=== PATIENT | female | born 1945 | race Caucasian/White ===

== ENCOUNTER → 2017-04-02 | Outpatient (CLI) | payer MEDICARE ==
[~2017-04-02] MED LIST: ALBU17AE23; BUDE6HFA; CATHETER FLUSH 10 ML SYR IV PRN; IOHEXOL 350 MG/ML 100 ML (OMNIPAQUE 350) VIAL IV ONE; MULT-608; NS 100 ML (IVPB) BAG IV ONE; OMEP-10; PRD10T
--- NOTE | 2017-04-02 08:34 | Diagnostic Imaging Report ---
PROCEDURE: CT neck soft tissue with contrast. TECHNIQUE: Multiple contiguous axial images were obtained through the neck after the administration of contrast. INDICATION: Persistent neck nodule. COMPARISON: None. FINDINGS: There is a 1.3 x 1.1 x 1.0 cm enhancing mass in the region of the fatty-replaced right parotid gland, directly adjacent the radiopaque marker indicating the area of interest. This mass abuts an otherwise normal-appearing lymph node. No other mass or fluid collections in the neck. No cervical lymphadenopathy. There is fatty replacement of the major salivary glands. The pharyngeal and laryngeal soft tissues are symmetric bilaterally with no focal enhancement or mass. The visualized paranasal sinuses and mastoids are clear. Mild atherosclerotic calcifications in the carotid bifurcations. The cervical carotid and vertebral arteries are patent on this nondedicated exam. Visualized intracranial contents and skull base are negative. Lung apices are clear. Moderate degenerative changes in the cervical spine. IMPRESSION: 1. Well-circumscribed enhancing mass measuring up to 1.3 cm in the region of the right parotid gland. This is directly adjacent the radiopaque marker indicating the area of interest. This mass should be readily amenable to biopsy. 2. Fatty replacement of the major salivary glands consistent with reported history of Sjogren's syndrome. Dictated by: Dictated on workstation # [id number]
== END ==
LOC: RAD 07:24
PROVIDERS: ATTEND Otolaryngology Otolaryngology/Facial Plastic Surgery
DX: R22.1 Localized swelling, mass and lump, neck (principal); M35.00 Sjogren syndrome, unspecified
CPT/HCPCS: 70491

== ENCOUNTER 2017-05-14 11:50 | Outpatient (CLI) | payer MEDICARE ==
[~2017-05-14] VITALS: Ht 162.6 cm; Wt 71.2 kg
[~2017-05-14 11:50] MED LIST changes: -BUDE6HFA; +BUDE6HFA IH; -CATHETER FLUSH 10 ML SYR IV PRN; -IOHEXOL 350 MG/ML 100 ML (OMNIPAQUE 350) VIAL IV ONE; -NS 100 ML (IVPB) BAG IV ONE
[2017-05-14 12:01] VITALS: BP 163/89
[2017-05-14] MEDS ORDERED: CLOP75TA69 PO (12:11)
[2017-05-14] MEDS ORDERED: LEVO100T7 PO (12:11)
[2017-05-14] MEDS ORDERED: SIMV20TA3 PO (12:11)
[2017-05-14] MEDS ORDERED: PRED5TAB PO (12:11)
[2017-05-14] MEDS ORDERED: LEVO25TA5 PO (12:11)
[2017-05-14] MEDS ORDERED: PRD10T PO (12:11)
[2017-05-14] MEDS ORDERED: SUCR1TAB36 PO (12:15)
[2017-05-14] MEDS ORDERED: RT-ALBUINH IH (12:25)
[2017-05-14 12:55] LABS: BASOPHILS % (AUTO) 0 % (0-10); EOSINOPHILS # (AUTO) 0.1 10^3/uL (0.0-0.3); EOSINOPHILS % (AUTO) 1 % (0-10); LYMPHOCYTES # (AUTO) 2.1 X 10^3 (1.0-4.0); LYMPHOCYTES % (AUTO) 23 % (12-44); MEAN CORPUSCULAR HEMOGLOBIN 32 PG (25-34); MEAN CORPUSCULAR HGB CONC 32 G/DL (32-36); MEAN CORPUSCULAR VOLUME 99 FL (80-99); MEAN PLATELET VOLUME 8.8 FL (7.4-10.4); MONOCYTES # (AUTO) 1.1 X 10^3 (0.0-1.0); MONOCYTES % (AUTO) 13 % (0-12); NEUTROPHILS # (AUTO) 5.5 X 10^3 (1.8-7.8); NEUTROPHILS % (AUTO) 63 % (42-75); PLATELET COUNT 305 10^3/uL (130-400); RED BLOOD COUNT 4.15 10^6/uL (4.35-5.85); RED CELL DISTRIBUTION WIDTH 13.8 % (10.0-14.5); WHITE BLOOD COUNT 8.9 10^3/uL (4.3-11.0)
[2017-05-14 13:10] LABS: ANION GAP 11 MMOL/L (5-14); BLOOD UREA NITROGEN 14 MG/DL (7-18); BUN/CREATININE RATIO 18; CALCIUM 9.1 MG/DL (8.5-10.1); CARBON DIOXIDE 27 MMOL/L (21-32); CHLORIDE 101 MMOL/L (98-107); CREATININE SERUM 0.79 MG/DL (0.60-1.30); GFR ESTIMATED > 60; GLUCOSE 100 MG/DL (70-105); POTASSIUM 4.1 MMOL/L (3.6-5.0); SODIUM 139 MMOL/L (135-145)
--- NOTE | 2017-05-14 15:35 | Diagnostic Imaging Report ---
INDICATION: Preop. FINDINGS: PA and lateral views show the lungs to be well-aerated. There are no infiltrates. No masses. The heart is not enlarged. No hilar adenopathy. No pulmonary edema. No pneumothorax or pleural effusion. IMPRESSION: Normal PA and lateral chest. Dictated by: Dictated on workstation # [id number]
== END 2017-05-14 13:00 | disposition home or self-care (01) ==
LOC: PREOP 11:50
PROVIDERS: ATTEND Otolaryngology Otolaryngology/Facial Plastic Surgery
DX: Z01.812 Encounter for preprocedural laboratory examination (principal); D11.0 Benign neoplasm of parotid gland
CPT/HCPCS: 36415; 71020; 80048; 85025; 87081; 93005

== ENCOUNTER 2017-05-21 06:17 | Day surgery (SDC) | payer MEDICARE ==
[~2017-05-21] VITALS: Ht 162.6 cm; Wt 71.2 kg
[~2017-05-21 06:17] MED LIST changes: +CLOP75TA69 PO; +LEVO100T7 PO; +LEVO25TA5 PO; +PRD10T PO; +PRED5TAB PO; +RT-ALBUINH IH; +SIMV20TA3 PO; +SUCR1TAB36 PO
[2017-05-21] MEDS ORDERED: HYDROCORTISONE 100 MG/2 ML (Solu-CORTEF) VIAL IV ONE (07:30)
[2017-05-21] MEDS ORDERED: FAMOTIDINE 20MG/2ML IV (PEPCID) IV ONE (07:30)
[2017-05-21] MEDS: LACTATED RINGERS 1,000 ML IV PRN ×2 (07:38→10:21)
[2017-05-21] MEDS ORDERED: ARTIFICIAL TEARS OINT (LACRI-LUBE) 3.5 GM TUBE ONE (07:50)
[2017-05-21] MEDS ORDERED: fentaNYL INJECTION 100 MCG/2 ML AMP ONE ×2 (07:57→09:37)
[2017-05-21] MEDS ORDERED: MUPIROCIN 2% OINT 22 GM (BACTROBAN) TUBE ONE (08:10)
[2017-05-21] MEDS ORDERED: LIDOCAINE/EPI 2% 1:100,00 (XYLOCAINE) 20 ML VIAL ONE (08:10)
[2017-05-21 08:24] VITALS: BP 178/76
[2017-05-21] MEDS ORDERED: BSS 15 ML ONE (08:28)
--- NOTE | 2017-05-21 08:30 | Progress Note-Pre Operative ---
Pre-Operative Progress Note H&P Reviewed The H&P was reviewed, patient examined and no changes noted. Date Seen by Provider: May 21, 2017 Time Seen by Provider: 07:45 Date H&P Reviewed: May 21, 2017 Time H&P Reviewed: 07:45 Pre-Operative Diagnosis: Rigth Parotid Mass ROSALIA CALLES MD May 21, 2017 8:30 am
[2017-05-21] MEDS ORDERED: ceFAZolin 1,000 MG (ANCEF) VIAL IV ONE (09:30)
[2017-05-21] MEDS ORDERED: proPOfol 200 MG/20 ML (DIPRIVAN) VIAL IV ONE (09:48)
[2017-05-21] MEDS ORDERED: SEVOFLURANE (ULTANE) 15 ML INHAL SOLN ONE ×10 (09:48→11:46)
[2017-05-21] MEDS ORDERED: SUCCINYLCHOLINE INJ 100 MG/5 ML SYR ONE (09:48)
--- NOTE | 2017-05-21 11:11 | Progress Note-Post Operative ---
Post-Operative Progess Note Surgeon (s)/Finishing Inspector (s) Surgeon ROSALIA CALLES MD Finishing Inspector n/a Pre-Operative Diagnosis Rigth Parotid Mass Post-Operative Diagnosis same Post-Op Procedure Note Date of Procedure: May 21, 2017 Name of Procedure Performed: Rigth Superficial PArotidectomy Description & Findings Description and Findings: n/a Anesthesia Type get Estimated Blood Loss minimal Packing none. Specimen(s) collected/removed right protid mass-pleomorphic adenoma ROSALIA CALLES MD May 21, 2017 11:11 am
[2017-05-21] MEDS ORDERED: HYDROcodone/APAP 5 MG/325 MG (LORTAB) TAB PO PRN (11:15)
[2017-05-21 12:00] VITALS: BP 134/70
[2017-05-21] MEDS ORDERED: ONDANSETRON 4 MG/2 ML (SDV) Z0FRAN IVP PRN (12:00)
[2017-05-21] MEDS ORDERED: fentaNYL INJECTION 100 MCG/2 ML AMP IVP PRN (12:00)
[2017-05-21] MEDS: D5 1/2 NS W/KCL 20 MEQ/L 1,000 ML IV SCH ×2 (12:49→16:24)
[2017-05-21] MEDS: ACETAMINOPHEN 325 MG TABLET/CAPLET (TYLENOL) PO PRN (12:58)
[2017-05-21] MEDS ORDERED: SUCRALFATE 1 GM (CARAFATE) TAB PO PRN (13:00)
[2017-05-21] MEDS ORDERED: PATIENT MAY USE OWN MEDS, ALL MC SCH (13:15)
[2017-05-21] MEDS ORDERED: RT-ALBUTEROL SULF 2.5 MG/3 ML PRE-MIX VIAL IH PRN (13:30)
[2017-05-21 16:08] VITALS: BP 138/66
--- NOTE | 2017-05-21 18:04 | Progress Note-Standard ---
Standard Progress Note Progress Notes/Assess & Plan Date Seen by Provider: May 21, 2017 Time Seen by Provider: 17:30 Progress/Assessment & Plan ENT-Enrico doing well post-op. 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
[2017-05-21 20:16] VITALS: BP 170/73
[2017-05-21] MEDS ORDERED: SIMvastatin 20 MG (ZOCOR) TAB PO SCH (21:00)
[2017-05-22] VITALS: BP 143/65
[2017-05-22] MEDS: ACETAMINOPHEN 325 MG TABLET/CAPLET (TYLENOL) PO PRN (00:10)
[2017-05-22 03:30] VITALS: BP 167/72
--- NOTE | 2017-05-22 06:21 | Progress Note-Standard ---
Standard Progress Note Progress Notes/Assess & Plan Date Seen by Provider: May 22, 2017 Time Seen by Provider: 06:00 Progress/Assessment & Plan ENT-Sanju doing well post-op. Minimal drainage from drain Flap intact and flat FAcial nerve-intact [place] diet and is ambulatory will observe dulce Will get her her nocturnal oxygen this evening at 2 liters/minute-she uses this at home plan on drain out in am and hten home ENT-Sanju continues to do well draine 10cc -d/c'ed incision flat-less bruising this am facial nerve normal will discharge after breakfast RTC-7-10 days for suture remvoal in [facility] in [facility] discharge prescritpins given patient has prescription for hydrocodone may resume her plavix on wednesday-resume all of other medications today ROSALIA CALLES MD May 22, 2017 6:21 am
[2017-05-22] MEDS ORDERED: LEVOTHYROXINE 100 MCG (LEVOTHROID) TAB PO SCH (06:30)
[2017-05-22] MEDS ORDERED: LEVOTHYROXINE 25 MCG (LEVOTHROID) TAB PO SCH (06:30)
[2017-05-22 08:00] VITALS: BP 122/73
[2017-05-22] MEDS ORDERED: BUDESONIDE IH SCH (09:00)
[2017-05-22] MEDS ORDERED: FORMOTEROL IH SCH (09:00)
[2017-05-22] MEDS ORDERED: predniSONE 10 MG TAB PO SCH (09:00)
[2017-05-22] MEDS ORDERED: predniSONE 5 MG TAB PO SCH (09:00)
== END 2017-05-22 10:20 | disposition home or self-care (01) ==
LOC: SDC 06:17 → 4TH 12:42 → SDC 05-22 10:20
PROVIDERS: ATTEND Otolaryngology Otolaryngology/Facial Plastic Surgery
DX: D11.0 Benign neoplasm of parotid gland; M35.00 Sjogren syndrome, unspecified; J45.909 Unspecified asthma, uncomplicated; Z79.899 Other long term (current) drug therapy; Z79.01 Long term (current) use of anticoagulants; K21.9 Gastro-esophageal reflux disease without esophagitis
CPT/HCPCS: 88307; 88331

== ENCOUNTER → 2019-01-19 | Outpatient (CLI) | payer MEDICARE ==
--- NOTE | 2019-01-19 10:11 | Diagnostic Imaging Report ---
INDICATION: Right knee pain. FINDINGS: Three views of the right knee show no fracture, dislocation or other acute abnormalities. IMPRESSION: Negative right knee. Dictated by: Dictated on workstation # [id number]
== END ==
LOC: RAD FS 09:37
PROVIDERS: ATTEND Nurse Practitioner
DX: M25.561 Pain in right knee (principal)
CPT/HCPCS: 73562

== ENCOUNTER 2020-09-09 08:55 | Emergency (ER) | payer MEDICARE ==
[~2020-09-09 08:55] MED LIST changes: +SIMV20TA26 PO; -SIMV20TA3 PO
[2020-09-09] MEDS ORDERED: LIDOCAINE 1% INJ 20 ML 20 ML VIAL INJ ONE (09:15)
--- NOTE | 2020-09-09 09:17 | ED Fall/Injury ---
General Chief Complaint: Upper Extremity Stated Complaint: FALL; LT ELBOW Source: patient Exam Limitations: no limitations History of Present Illness Date Seen by Provider: Sep 09, 2020 Time Seen by Provider: 09:01 Initial Comments The patient presents to the ER by private conveyance from home with chief complaint of pain in her left elbow after a fall approximately 1 hour prior to arrival. She bandaged up herself and put an Silverio wrap on it but she was afraid t hat with her use of prednisone related to Sjogren's disease the wound might become infected so she wanted it checked out. She has the ability to pronate and supinate her left forearm and a little bit of tenderness in her wrist but she says she mainly landed on her left elbow. She takes Tylenol, naproxen routinely. She takes one half a tablet of tramadol every other day for her knee pain. She has scheduled knee surgery with Dr. Caruso in the spring. She has a history of peripheral vascular disease and poor wound healing. She is not on any antibiotics. She denies the use of blood thinners, striking her head nor loss of consciousness. Rates her pain 5 out of 10. The patient reports a tetanus vaccine was given 1 to [address] Landa. Allergies and Home Medications Allergies Coded Allergies: atropine (Verified Allergy, Unknown, 05/14/17) diphenhydramine (Unverified Allergy, Unknown, 05/21/17) midazolam (Verified Allergy, Unknown, versed psychosis, 05/14/17) omeprazole (Verified Allergy, Unknown, severe diarrhea, 05/14/17) Home Medications Albuterol Sulfate 1 Puff Puff, 2 PUFF IH Q4H PRN for WHEEZING, (Reported) 1 PUFF = 90 MCG Budesonide/Formoterol Fumarate 10.2 Gm Hfa.aer.ad, 2 PUFF IH DAILY, (Reported) Levothyroxine Sodium 25 Mcg Tablet, 25 MCG PO DAILY, (Reported) take with 100mcg tab Levothyroxine Sodium 100 Mcg Tablet, 100 MCG PO DAILY, (Reported) take with 25mcg tab Prednisone 10 Mg Tab, 10 MG PO DAILY, (Reported) take with 5mg tab Prednisone 5 Mg Tablet, 5 MG PO DAILY, (Reported) take with 10mg tab Simvastatin 20 Mg Tablet, 20 MG PO HS, (Reported) Sucralfate 1 Gm Tablet, 1 GM PO QID PRN for HEARTBURN, (Reported) Patient Home Medication List Home Medication List Reviewed: Yes Review of Systems Review of Systems Constitutional: No chills, No diaphoresis Eyes: Denies Blindness, Denies Blurred Vision Ears, Nose, Mouth, Throat: denies ear pain, denies ear discharge Respiratory: No cough, No short of breath Cardiovascular: No chest pain, No palpitations Gastrointestinal: No abdominal pain, No nausea, No vomiting Musculoskeletal: see HPI, joint pain Skin: see HPI Past Yeulwvo-Kdemoi-Oxripk Hx Patient Social History Alcohol Use: Denies Use Number of Drinks Today: Alcohol Beverage of Choice: Wine Recreational Drug Use: No Smoking Status: Never a Smoker 2nd Hand Smoke Exposure: No Recent Foreign Travel: No Contact w/Someone Who Travel: No Recent Hopitalizations: No Physical Abuse: No Sexual Abuse: No Mistreated: No Fear: No Immunizations Up To Date Tetanus Booster (TDap): Unknown Date of Pneumonia Vaccine: May 14, 2016 Seasonal Allergies Seasonal Allergies: No Past Medical History Surgeries: Yes (Lap Chela, Neuroma from Back of Neck, Left TKR, Bilat Femoral Artery Endar) Joint Replacement, Thyroidectomy Respiratory: Yes (Has Asthma Symptoms due to Sjogrens, Reactive Airway Disease, Oxygen at HS) Cardiac: No Neurological: No Reproductive Disorders: No Sexually Transmitted Disease: No Gastrointestinal: Yes (Hx of Hep A, Hx of Lap Chela) Gastroesophageal Reflux Musculoskeletal: No Endocrine: Yes (Thyroidectomy) Loss of Vision: Denies Hearing Impairment: Denies Cancer: No Psychosocial: No Integumentary: No Blood Disorders: No Physical Exam Vital Signs Vital Signs - First Documented 09/09/20 09:04 Temp 37.1 Pulse 88 Resp 16 B/P (MAP) 144/82 (102) Pulse Ox 100 Capillary Refill : Height, Weight, BMI Height: 5'4.00" Weight: 157lbs. 0.0oz. [id number]; 27.0 BMI Method: General Appearance: WD/WN, mild distress HEENT: PERRL/EOMI, TMs normal, pharynx normal, other (Atraumatic head with no bah sign or raccoon eyes) Neck: non-tender, full range of motion, normal inspection Cardiovascular: normal peripheral pulses, regular rate, rhythm Respiratory: no respiratory distress, no accessory muscle use Peripheral Pulses: 2+ Radial Pulses (R), 2+ Radial Pulses (L) Extremities: other (Lacks about 20 degrees of extension in her left elbow due to pain. Pronation supination left elbow intact. Tenderness over proximal radius and ulna without obvious deformity) Neurologic/Psychiatric: no motor/sensory deficits, alert, normal mood/affect, oriented x 3 Skin: other (Minor abrasion on the left wrist palmar side and round skin tear abrasion over the left elbow.) [place] Coma Score Best Eye Response: (4) Open Spontaneously Best Verbal Response: (5) Oriented Best Motor Response: (6) Obeys Commands [place] Total: 15 Procedures/Interventions Wound Location: Upper Extremities Other Wound Location Lateral left elbow Wound Length (cm): 2.5 Wound's Depth, Shape: irregular, sub Q Wound Explored: no foreign body removed Irrigated w/ Saline (ccs): 100 Betadine Prep?: Yes (Chlorhexidine) Anesthesia: 1% Lidocaine Volume Anesthetic (ccs): 2 Wound Debrided: minimal Suture: Ethlion Suture Size: 4-0 Number of Sutures: 3 Layer Closure?: 1 Sterile Dressing Applied?: Yes Progress Under usual sterile conditions we flushed out the wound and explored it. There were no foreign debris. We could see the joint capsule appeared to be intact. No bone could be visualized. The wound was thoroughly flushed with sterile saline and chlorhexidine and then sterile saline. We then applied 3 simple in terrupted sutures to the irregular wound which closed the wound. It was not bleeding. A sterile, dry gauze dressing was applied. Patient tolerated procedure well peer Splinting and Joint Reduction : Location: Left elbow Pre-Proc Neuro Vasc Exam: normal Post-Proc Neuro Vasc Exam: normal, unchanged from pre-exam Progress Posterior arm splint was placed using 3 inch fiberglass and appropriate padding. Silverio bandage for mounting. Patient had good neurovascular status after placement of splint at a 90 degree angle and was placed in a sling. Patient tolerated the procedure well. Progress/Results/Core Measures Results/Orders My Orders Orders - NAKIA ROSS Lidocaine 1% Inj 20 Ml (Xylocaine 1% Inj (09/09/20 09:15) Elbow 3 View Left (09/09/20 09:09) Wrist 2 View Left (09/09/20 09:09) Medications Given in ED Current Medications Medications Dose Ordered Sig/Shraddha Route Start Time Stop Time Status Last Admin Dose Admin Lidocaine HCl 20 ml ONCE ONCE INJ 09/09/20 09:15 09/09/20 09:16 DC 09/09/20 09:53 20 ML Vital Signs/I&O 09/09/20 09:04 Temp 37.1 Pulse 88 Resp 16 B/P (MAP) 144/82 (102) Pulse Ox 100 Progress Progress Note : Time: 09:15 Progress Note Plan to obtain plain films of the left elbow and wrist related to her fall. We have discussed observation versus imaging of her head and prefers observation. We will clean her wound thoroughly with chlorhexidine and sterile saline flush it and then closed it with suture after the x-ray. She just wants an ice pack for pain for now. Because of the concern for open fracture we will put her on antibiotics. Diagnostic Imaging Diagonstic Imaging: Xray Plain Films/CT/US/NM/MRI: elbow (Left) Comments comminuted fracture of the olecranon process of the left ulna [facility] [place] NAME: [facility] REC#: [id number] PT STATUS: REG ER : 1945 PHYSICIAN: NAKIA ROSS MD ADMIT DATE: 09/09/20/ER FS Draft Date of Exam:09/09/20 ELBOW 3 VIEW LEFT EXAMINATION: Left elbow, 3 views INDICATION: Left elbow pain related to trauma after fall on ice. COMPARISON: None available. FINDINGS: There is a severely comminuted fracture of the olecranon process of the ulna, with the largest fracture fragment displaced anteriorly. The fracture does extend into the ulnohumeral joint. No other fracture is identified. There is mild elevation of the anterior fat pad, likely representing small effusion. There is associated soft tissue swelling in the posterior elbow. IMPRESSION: Comminuted, displaced intra-articular fracture of the olecranon. Dictated on workstation # [id number] Dict: 09/09/20930 Trans: 09/09/2040 [facility] [phone] Interpreted by: ROSALIA COLLINS DO Electronically signed by: Reviewed: Reviewed by Me Diagonstic Imaging: Xray Plain Films/CT/US/NM/MRI: forearm (Left wrist) Comments No acute appearing fracture. Hardware appears intact. NAME: [facility] REC#: [id number] PT STATUS: REG ER : 1945 PHYSICIAN: NAKIA ROSS MD ADMIT DATE: 09/09/20/ER FS Signed Date of Exam:09/09/20 WRIST 2 VIEW LEFT HISTORY: Fall on ice this morning, injury to the left wrist. TECHNIQUE: Two views of the left wrist. COMPARISON: None. FINDINGS: There is internal fixation of the distal left radius with a volar plate and multiple screws. No hardware complication is seen. There is mild deformity of the distal radius from remote trauma. There are moderate degenerative changes in the carpus. There is approximately 4 mm of positive ulnar variance. No fracture is seen. The alignment appears normal. IMPRESSION: 1. Internal fixation of the distal left radius with no hardware complication or acute osseous abnormality seen. 2. Degenerative changes in the left carpus. Dictated by: Dictated on workstation # [id number] Dict: 09/09/2033 Trans: 09/09/20 0948 [id number] Interpreted by: CHRISSY BLOCK MD Electronically signed by: CHRISSY BLOCK MD 09/09/2048 Reviewed: Reviewed by Me Departure Impression Primary Impression: Fall Qualified Codes: W19.XXXA - Unspecified fall, initial encounter Additional Impressions: Abrasion Skin tear of left elbow without complication Qualified Codes: S51.012A - Laceration without foreign body of left elbow, initial encounter Fracture, olecranon Qualified Codes: S52.022A - Displaced fracture of olecranon process without intraarticular extension of left ulna, initial encounter for closed fracture Disposition: HOME, SELF-CARE Condition: Improved Departure-Patient Inst. Decision time for Depature: 10:30 Referrals: WILMER LANDA MD (PCP/Family) Primary Care Physician JUANITA CARUSO MD, TERRY D MD Patient Instructions: Elbow Fracture (DC), Laceration Repair With Stitches (DC) Add. Discharge Instructions: Keep the splint dry. Elevate the left arm above the level of your heart for swelling and/or pain. Ice for 20 minutes every 2 hours while awake for the first 2 to 3 days. Loosen the wraps of your splint if you are having increasing swelling, numbness and tingling or increased pain. Continue using Tylenol, naproxen, ice and elevation. Tramadol 1/2 to 1 tablet every 6 hours as necessary for breakthrough pain. Keflex 1 capsule 3 times a day for the next week to prevent infection of your wound. Continue taking your other medications as prescribed. Follow-up with an orthopedic surgeon of your choice within the next week for evaluation and management of your fracture. 2-3 times a day take your arm out of the sling and do range of motion exercises of your shoulder using your good arm. You may leave the left arm in the splint until you see the surgeon. All discharge instructions reviewed with patient and/or family. Voiced understanding. Scripts Cephalexin (Keflex) 500 Mg Capsule 500 MG PO TID for 7 Days, #21 CAP 0 Refills Prov: NAKIA ROSS 09/09/20 Tramadol HCl (Tramadol HCl) 50 Mg Tablet 25-50 MG PO Q6H PRN for PAIN for 7 Days, #14 TAB 0 Refills Prov: NAKIA ROSS 09/09/20 Copy Copies To 1: JUANITA CARUSO MD; AMBIKA STEINBERG MD, TITUS J Sep 09, 2020 09:17
--- NOTE | 2020-09-09 09:37 | Diagnostic Imaging Report ---
HISTORY: Fall on ice this morning, injury to the left wrist. TECHNIQUE: Two views of the left wrist. COMPARISON: None. FINDINGS: There is internal fixation of the distal left radius with a volar plate and multiple screws. No hardware complication is seen. There is mild deformity of the distal radius from remote trauma. There are moderate degenerative changes in the carpus. There is approximately 4 mm of positive ulnar variance. No fracture is seen. The alignment appears normal. IMPRESSION: 1. Internal fixation of the distal left radius with no hardware complication or acute osseous abnormality seen. 2. Degenerative changes in the left carpus. Dictated by: Dictated on workstation # [id number]
--- NOTE | 2020-09-09 09:40 | Diagnostic Imaging Report ---
EXAMINATION: Left elbow, 3 views INDICATION: Left elbow pain related to trauma after fall on ice. COMPARISON: None available. FINDINGS: There is a severely comminuted fracture of the olecranon process of the ulna. The largest fracture fragment is displaced superiorly, likely reflecting avulsion, with retraction of the triceps tendon suspected. The fracture does extend into the ulnohumeral joint. No other fracture is identified. There is mild elevation of the anterior fat pad, likely representing small effusion. There is associated soft tissue swelling in the posterior elbow. IMPRESSION: Comminuted, displaced intra-articular fracture of the olecranon, likely related to a avulsion injury. Dictated by: Dictated on workstation # [id number]
[2020-09-09] MEDS ORDERED: TRM50T PO (10:42)
[2020-09-09] MEDS ORDERED: CEPH-507 PO (10:42)
[2020-09-09 10:49] VITALS: BP 161/75
== END 2020-09-09 10:49 | disposition home or self-care (01) ==
LOC: EDUNIT# 08:55 → ER FS 08:57
DX: S52.032A Displaced fracture of olecranon process with intraarticular extension of left ulna, initial encounter for closed fracture (principal); S60.812A Abrasion of left wrist, initial encounter; K21.9 Gastro-esophageal reflux disease without esophagitis; Z88.8 Allergy status to other drugs, medicaments and biological substances; Z79.52 Long term (current) use of systemic steroids; W19.XXXA Unspecified fall, initial encounter
CPT/HCPCS: 29105; 73080; 73100